=== PATIENT | male | born 1945 | race Caucasian/White ===

== ENCOUNTER → 2021-07-07 14:48 | Outpatient (CLI) | payer MEDICARE, OTHER, SELFPAY ==
[2021-07-07] MEDS: COVID-19 VACC #3, MRNA(MOD) 50 MCG/0.25 ML VIAL IM (14:53)
== END ==
PROVIDERS: Visit Provider Internal Medicine
DX: Z23 Encounter for immunization (principal)
CPT/HCPCS: 0013A; 91301